=== PATIENT | female | born 1945 | race Caucasian/White ===

== ENCOUNTER → 2021-01-29 | Outpatient (CLI) | payer MEDICARE ==
--- NOTE | 2021-01-30 10:40 | RAD ---
XR FOOT_RIGHT 2 VIEWS 01/30/2021 Reason: ARCH PAIN X 6 MONTHS Comparison: None Technique: 2 views of the right foot Findings: There is no acute fracture or dislocation. Joint spaces are well-maintained with the exception of the first metatarsophalangeal joint where there is joint space narrowing. Soft tissues are normal. Small plantar and posterior calcaneal enthesophytes. Impression: No acute osseous abnormality. Electronically signed by: Zechariah Hanson (01/30/2021 10:38 AM) [id number]
== END ==
LOC: RAD 15:48
PROVIDERS: ATTEND Physician Assistant
DX: M77.31 Calcaneal spur, right foot (principal); M25.871 Other specified joint disorders, right ankle and foot
CPT/HCPCS: 73620

== ENCOUNTER → 2021-02-04 | Outpatient (CLI) | payer MEDICARE ==
--- NOTE | 2021-02-04 16:59 | RAD ---
CT LOWER RIGHT EXTREMITY WITHOUT CONTRAST History: Right foot pain. Comparison: Foot radiographs 01/29/2021. Technique: CT of the right foot without contrast. Findings: Mildly decreased osseous mineralization. No fracture or dislocation. Normal alignment of the Lisfranc interval. Hammertoe positioning of the second through fifth toes. There are moderate degenerative ch anges at the first metatarsophalangeal joint. Bipartite medial first MTP sesamoid. Small Achilles ins ertion and plantar calcaneal enthesophytes. The ankle flexor, extensor and peritoneal tendons are humberto ssly intact. The Achilles is normal in configuration without evidence of tendinopathy. Mild posterior and medial ankle soft tissue stranding. No subcutaneous fluid collection identified. Impression: 1. Mild degenerative changes of the right foot without acute osseous abnormality. ------ Exposure: One or more of the following individualized dose reduction techniques were utilized for thi s examination: 1. Automated exposure control 2. Adjustment of the mA and/or kV according to patient size 3. Use of iterative reconstruction technique. Electronically signed by: Jose Henry MD (02/04/2021 4:57 PM) [facility]
== END ==
LOC: CT 15:17
PROVIDERS: ATTEND Physician Assistant
DX: M19.071 Primary osteoarthritis, right ankle and foot (principal); M20.41 Other hammer toe(s) (acquired), right foot; M77.31 Calcaneal spur, right foot; M81.8 Other osteoporosis without current pathological fracture
CPT/HCPCS: 73700